=== PATIENT | male | born 1945 | race Caucasian/White ===

== ENCOUNTER → 2016-07-21 | Outpatient (CLI) | payer MEDICARE, OTHER ==
[2016-07-21 13:53] LABS: BASOPHILS % (AUTO) 1 % (0-2); BILIRUBIN,URINE Negative (Negative); CLARITY,URINE Clear; COLOR,URINE Yellow; EOSINOPHILS # (AUTO) 0.1 10^3uL; EOSINOPHILS % (AUTO) 1 % (0-4); GLUCOSE, URINE (UA) Negative (Negative); LEUKOCYTE ESTERASE ,URINE Negative (Negative); LYMPHOCYTES # (AUTO) 2.1 X10^3; MEAN CORPUSCULAR HEMOGLOBIN 29.3 PG (26.0-34.0); MEAN CORPUSCULAR HGB CONC 34.4 g/dL (31.0-37.0); MEAN CORPUSCULAR VOLUME 85 FL (80-100); MEAN PLATELET VOLUME 8.7 FL (6.0-9.5); MONOCYTES # (AUTO) 1.3 X10^3; MONOCYTES % (AUTO) 10 % (3-11); NEUTROPHILS # (AUTO) 8.8 X10^3; NEUTROPHILS % (AUTO) 71 % (51-67); PH,URINE 6.5 (5.0 - 8.0); PLATELET COUNT 314 10^3uL (150-450); WHITE BLOOD COUNT 12.47 10^3uL (4.0-11.0)
[2016-07-21 13:56] LABS: URINE CENTRIFUGED VOLUME 12 mL
[2016-07-21 14:01] LABS: ALBUMIN 4.2 g/dL (3.4-5.0); ANION GAP 16.1 MEQ/L (3-15); CALCULATED IONIZED CALCIUM 3.8 mg/dL (3.8-4.6); TOTAL PROTEIN 7.7 g/dL (6.4-8.5)
[2016-07-21 14:10] LABS: RBC,URINE 0-2 /HPF
== END ==
LOC: LAB 13:37
PROVIDERS: ATTEND Family Medicine
DX: I10 Essential (primary) hypertension (principal); R53.83 Other fatigue
CPT/HCPCS: 36415; 80053; 80061; 81003; 81015; 84443; 85025